=== PATIENT | female | born 1985 | race Two or more races ===

== ENCOUNTER 2023-05-26 08:54 | Outpatient (CLI) | payer OTHER ==
[~2023-05-26 08:54] MED LIST: FIORICET 50-301 EACH PO
== END 2023-05-26 09:03 | disposition home or self-care (01) ==
LOC: RAD 08:54
DX: N97.0 Female infertility associated with anovulation (principal)

== ENCOUNTER 2024-02-29 10:22 | Outpatient (CLI) | payer OTHER | END 2024-02-29 10:37 | disposition home or self-care (01) | LOC: SONOGRAMA 10:22 | PROVIDERS: ATTEND Family Medicine | DX: D25.9 Leiomyoma of uterus, unspecified (principal) ==